=== PATIENT | male | born 1975 | race Caucasian/White ===

== ENCOUNTER 2024-12-01 11:17 | Emergency (ER) | payer OTHER, BC ==
[2024-12-01 11:53] LABS: BASOPHILS PERCENT AUTO 0.4 % (0.0-1.0); EOSINOPHILS ABSOLUTE AUTO 0.1 K/mm3 (0.0-0.4); EOSINOPHILS PERCENT AUTO 0.7 % (0.0-6.0); HEMATOCRIT 41.6 % (42.0-52.0); IMMATURE GRAN ABSOLUTE AUTO 0.02 K/mm3 (0.00-0.05); IMMATURE GRAN PERCENT AUTO 0.2 % (0.0-0.4); LYMPHOCYTES ABSOLUTE AUTO 1.4 K/mm3 (1.0-4.8); LYMPHOCYTES PERCENT AUTO 16.2 % (24.0-44.0); MEAN CORPUSCULAR HEMOGLOBIN 29.8 pg (28.0-32.0); MEAN CORPUSCULAR HGB CONC 33.7 g/dl (32.0-36.0); MEAN CORPUSCULAR VOLUME 88.5 fl (83.0-99.0); MEAN PLATELET VOLUME 10.8 fl (9.4-12.4); MONOCYTES ABSOLUTE AUTO 0.7 K/mm3 (0.0-0.8); MONOCYTES PERCENT AUTO 8.5 % (0.0-8.0); NEUTROPHILS ABSOLUTE AUTO 6.3 K/mm3 (1.8-7.7); PLATELET COUNT,PLT 252 K/mm3 (150-400); WHITE BLOOD CELL COUNT,WBC 8.47 K/mm3 (3.9-11.3)
[2024-12-01 12:00] LABS: A/G RATIO 1.2 (1-2); ALANINE AMINOTRANSFERASE,ALT 41 U/L (16-63); ALBUMIN 3.6 g/dl (3.4-5.0); ALKALINE PHOSPHATASE 71 U/L (46-116); ANION GAP 13.6 (5-15); ASPARTATE AMNIOTRANSFERASE,AST 32 U/L (15-37); BILIRUBIN TOTAL 0.8 mg/dL (0.2-1.0); BLOOD UREA NITROGEN,BUN 28 mg/dL (7-18); CALCIUM 8.8 mg/dL (8.5-10.1); CARBON DIOXIDE,CO2 27 mEq/L (21-32); CHLORIDE,CL 104 mEq/L (98-107); CREATININE 1.4 mg/dL (0.7-1.3); ESTIMATED GFR 62 mL/min (>60); GLUCOSE RANDOM 110 mg/dL (70-99); LIPASE 38 U/L (16-77); POTASSIUM,K 4.6 mEq/L (3.5-5.1); PROTEIN TOTAL,TP 6.6 g/dl (6.4-8.2); SODIUM,NA 140 mEq/L (136-145)
[2024-12-01] MEDS ORDERED: Naloxone 0.4 MG/ML SDV IVPUSH PRN ×2 (12:28→14:10)
[2024-12-01] MEDS: Sodium Chloride 0.9% 1,000 ML IV ONE (12:54)
[2024-12-01] MEDS: HYDROmorphone 0.5 MG/0.5 ML Syringe IVPUSH ONE ×2 (12:54→15:09)
[2024-12-01] MEDS: Iopamidol 755 Mg/ML 100 ML Bottle IVPUSH ONE (12:58)
[2024-12-01] MEDS: Sodium Chloride 0.9% 10 ML Syringe FLUSH ONE (12:58)
[2024-12-01] MEDS: Diphtheria,Pertussis(Acell),Tetanus Vaccine 0.5 ML Syringe IM ONE (13:43)
[2024-12-01] MEDS: ceFAZolin 2 GM Vial IVPUSH ONE (13:43)
[2024-12-01] MEDS: Lactated Ringers 1,000 ML IV ONE (15:09)
== END 2024-12-01 16:00 ==
LOC: JD.ED 11:17
DX: S82.51XA Displaced fracture of medial malleolus of right tibia, initial encounter for closed fracture (principal); S82.432A Displaced oblique fracture of shaft of left fibula, initial encounter for closed fracture; S82.892B Other fracture of left lower leg, initial encounter for open fracture type I or II; Z23 Encounter for immunization; Z79.899 Other long term (current) drug therapy; V49.49XA Driver injured in collision with other motor vehicles in traffic accident, initial encounter; Y93.89 Activity, other specified
CPT/HCPCS: 27788; 36415; 70450; 71045; 71260; 72125; 72170; 73560; 73590; 73600; 74177; 80053; 80307; 83690; 85025; 90471; 90715; 96374; 96375; 96376; 99285; J0690; J7030; J7120; Q9967; J1171